=== PATIENT | female | born 1955 | race Caucasian/White ===

== ENCOUNTER 2021-09-30 11:54 | Inpatient (IN) ==
[2021-09-30 12:58] LABS: Hematocrit 42.1 % (35.3-44.9); Hemoglobin 13.9 g/dL (11.5-15.4); Mean Corpuscular Volume 87.7 fL (83.0-100.0); Mean Platelet Volume 9.6 fL (9.4-12.4); Platelet Count 406 K/mcL (140-400); Red Cell Distribution Width 13.3 % (11.5-14.5); White Blood Count 8.8 K/mcL (4.3-11.1)
[2021-09-30 12:59] LABS: Bilirubin,Urine Negative (Negative); Blood,Urine Moderate (Negative); Clarity,Urine Ex.Turbid (Clear); Color,Urine Orange (Yellow); Glucose,Urine (UA) Normal (Normal); Ketones,Urine Negative (Negative); Leukocyte Esterase,Urine Large (Negative); Nitrite,Urine Negative (Negative); PH,Urine 7.5 pH Units (5.0-8.0); Protein,Urine >=300 mg/dL (Neg-Trace); RBC,Urine TNTC per hpf (0-3); Specific Gravity,Urine 1.012 (1.010-1.025); Squamous Epithelial Cell,Urine Moderate per hpf (None-Few); Urobilinogen,Urine Normal (Normal); WBC,Urine TNTC per hpf (0-3)
[2021-09-30 13:15] LABS: Albumin 3.8 g/dL (3.5-5.7); Albumin/Globulin Ratio 0.7 (1.1-2.2); Bilirubin,Direct 0.1 mg/dL (0.0-0.2); Bilirubin,Indirect 0.3 mg/dL (0.0-1.0); Bilirubin,Total 0.4 mg/dL (0.3-1.0); Calcium 9.4 mg/dL (8.6-10.3); Globulin 5.2 g/dL (2.4-3.5); Potassium 5.3 mEq/L (3.5-5.1); Troponin I 0.04 ng/mL (< 0.04)
[2021-09-30] MEDS ORDERED: 0.9 % Sodium Chloride 1,000 ML IVC ONE (13:16)
[2021-09-30 13:17] LABS: Eosinophils # 0.1 K/mcL (0.0-0.6); Lymphocytes # 1.9 K/mcL (0.6-4.6); Monocytes # 0.2 K/mcL (0.0-1.3); Neutrophils # 6.7 K/mcL (1.6-8.9)
[2021-09-30 13:18] LABS: Reactive Lymphocytes Present (Not Present)
[2021-09-30] MEDS ORDERED: Ringers Solution, Lactated 1,000 ML IVC ONE (13:19)
[2021-09-30] MEDS ORDERED: cefTRIAXone 1,000 MG in Water for inj. (sterile) 10 ML IVP ONE (13:24)
[2021-09-30 13:26] LABS: Influenza A PCR Negative (Negative); Influenza B PCR Negative (Negative); Resp. Syncytial Virus PCR Negative (Negative)
[2021-09-30 13:46] LABS: SARS-CoV-2 by PCR (In House) Positive (Negative)
[2021-09-30] MEDS ORDERED: *HR* FentaNYL (PF) 100 MCG/2 ML VIAL IVP ONE (14:19)
[2021-09-30] MEDS ORDERED: D5 IVC SCH (14:45)
[2021-09-30] MEDS ORDERED: NACL IVC SCH (14:45)
[2021-09-30] MEDS ORDERED: SODIUM BICARBONATE IVC SCH (14:45)
[2021-09-30] MEDS ORDERED: Ondansetron 4 MG/2 ML VIAL IVP PRN ×3 (16:30→19:32)
[2021-09-30] MEDS ORDERED: *HR* HYDROmorphone PF 0.5 MG/0.5 ML SYRINGE IVP PRN (16:30)
[2021-09-30 16:45] LABS: Potassium 5.3 mEq/L (3.5-5.1)
[2021-09-30] MEDS ORDERED: *HR* Propofol 200 MG/20 ML VIAL IVP ONE (17:09)
[2021-09-30] MEDS ORDERED: Ondansetron 4 MG/2 ML VIAL ONE (17:11)
[2021-09-30] MEDS ORDERED: Lidocaine -MPF 2% 5 ML VIAL ONE (17:11)
[2021-09-30] MEDS ORDERED: *HR* FentaNYL (PF) 100 MCG/2 ML VIAL ONE (17:11)
[2021-09-30] MEDS ORDERED: Isovue-300 50ML VIAL ONE (17:23)
[2021-09-30] MEDS ORDERED: Acetaminophen IV 1,000 MG/100 ML BAG IVPB ONE (17:32)
[2021-09-30] MEDS ORDERED: *HR* Rocuronium Bromide 50 MG/5 ML VIAL ONE (17:50)
[2021-09-30] MEDS ORDERED: Piperacillin/Tazobactam 3.375 GM in 0.9 % Sodium Chloride Mini Bag 100 ML IVPB SCH (18:00)
[2021-09-30] MEDS ORDERED: Sugammadex Sodium 200 MG/2 ML VIAL IV ONE (18:25)
[2021-09-30] MEDS: D5 IVC SCH (20:11)
[2021-09-30] MEDS: NACL IVC SCH (20:11)
[2021-09-30] MEDS: SODIUM BICARBONATE IVC SCH (20:11)
[2021-09-30] MEDS ORDERED: *HR* Heparin 5,000 UNIT/ML VIAL SQ SCH (22:00)
[2021-09-30] MEDS: Piperacillin/Tazobactam 3.375 GM in 0.9 % Sodium Chloride Mini Bag 100 ML IVPB SCH (22:51)
[2021-09-30] MEDS: *HR* Heparin 5,000 UNIT/ML VIAL SQ SCH (22:58)
[2021-10-01] MEDS: Piperacillin/Tazobactam 3.375 GM in 0.9 % Sodium Chloride Mini Bag 100 ML IVPB SCH ×2 (05:30→17:30)
[2021-10-01] MEDS: *HR* Heparin 5,000 UNIT/ML VIAL SQ SCH ×3 (05:31→20:51)
[2021-10-01] MEDS ORDERED: Piperacillin/Tazobactam 3.375 GM in 0.9 % Sodium Chloride Mini Bag 100 ML IVPB SCH (06:00)
[2021-10-01] MEDS: NACL IVC SCH (07:49)
[2021-10-01] MEDS: SODIUM BICARBONATE IVC SCH (07:49)
[2021-10-01] MEDS: D5 IVC SCH (07:49)
[2021-10-01 10:53] LABS: Hematocrit 33.2 % (35.3-44.9); Mean Corpuscular HGB Conc 31.3 g/dL (31.6-35.5); Mean Corpuscular Hemoglobin 28.9 pg (28.0-33.3); Mean Corpuscular Volume 92.2 fL (83.0-100.0); Mean Platelet Volume 9.8 fL (9.4-12.4); Platelet Count 307 K/mcL (140-400); Red Cell Distribution Width 13.4 % (11.5-14.5)
[2021-10-01 11:09] LABS: Hemoglobin 10.4 g/dL (11.5-15.4); White Blood Count 3.7 K/mcL (4.3-11.1)
[2021-10-01 11:15] LABS: Uric Acid 7.4 mg/dL (2.3-7.6)
[2021-10-01 11:17] LABS: Calcium 7.6 mg/dL (8.6-10.3); Phosphorous 4.9 mg/dL (2.7-4.5); Potassium 4.8 mEq/L (3.5-5.1)
[2021-10-01 11:39] LABS: Vitamin D 25 Hydroxy 16 ng/mL (30-80)
[2021-10-01] MEDS: SODIUM ZIRCONIUM CYCLOSILICATE 5 GM POWD.PACK PO SCH (11:50)
[2021-10-01 11:53] LABS: Hepatitis B Surface Antigen Nonreactive (Nonreactive)
[2021-10-01 12:22] LABS: Hepatitis C Virus Antibody Nonreactive (Nonreactive)
[2021-10-01 12:23] LABS: Hepatitis B Core IgM Nonreactive (Nonreactive)
[2021-10-01 12:24] LABS: Hepatitis A Antibody IgM Nonreactive (Nonreactive)
[2021-10-01] MEDS: Sodium Bicarbonate 75 MEQ in 0.45 % Sodium Chloride 1,000 ML IVC SCH (14:27)
[2021-10-01 15:10] LABS: Lymphocytes # 0.8 K/mcL (0.6-4.6); Monocytes # 0.3 K/mcL (0.0-1.3); Neutrophils # 2.6 K/mcL (1.6-8.9); Platelet Estimate Normal (Normal); Poikilocytosis 1+ (Not Present); Reactive Lymphocytes Present (Not Present)
[2021-10-01 16:25] LABS: Sodium, Urine 65.5 mEq/L
[2021-10-01 16:27] LABS: Protein/Creatinine Ratio,Urine 4.95 mg/mg (0.00-0.20)
[2021-10-01] MEDS ORDERED: Ergocalciferol (VIT D2) 50,000 UNIT (1.25MG) CAP PO SCH (18:00)
[2021-10-02 01:34] LABS: Basophils % 0.3 %; Eosinophils % 0.1 %; Hematocrit 32.4 % (35.3-44.9); Hemoglobin 10.4 g/dL (11.5-15.4); Immature Granulocytes % 1.1 % (0-4); Lymphocytes # 1.5 K/mcL (0.6-4.6); Lymphocytes % 21.9 %; Mean Corpuscular HGB Conc 32.1 g/dL (31.6-35.5); Mean Corpuscular Hemoglobin 28.8 pg (28.0-33.3); Mean Corpuscular Volume 89.8 fL (83.0-100.0); Mean Platelet Volume 9.4 fL (9.4-12.4); Monocytes # 0.5 K/mcL (0.0-1.3); Monocytes % 7.1 %; Neutrophils # 4.9 K/mcL (1.6-8.9); Platelet Count 315 K/mcL (140-400); Red Blood Count 3.61 M/mcL (3.82-4.97); Red Cell Distribution Width 13.4 % (11.5-14.5); Segmented Neutrophils % 69.5 %
[2021-10-02 01:52] LABS: Calcium 7.6 mg/dL (8.6-10.3); Potassium 3.9 mEq/L (3.5-5.1)
[2021-10-02 02:54] LABS: Platelet Estimate Normal (Normal); Reactive Lymphocytes Present (Not Present)
[2021-10-02] MEDS: *HR* Heparin 5,000 UNIT/ML VIAL SQ SCH ×3 (05:12→20:52)
[2021-10-02] MEDS: Piperacillin/Tazobactam 3.375 GM in 0.9 % Sodium Chloride Mini Bag 100 ML IVPB SCH ×2 (05:12→17:11)
[2021-10-02] MEDS: Sodium Bicarbonate 75 MEQ in 0.45 % Sodium Chloride 1,000 ML IVC SCH (05:59)
[2021-10-02] MEDS: SODIUM ZIRCONIUM CYCLOSILICATE 5 GM POWD.PACK PO SCH (09:07)
[2021-10-02] MEDS: Cholecalciferol (D-3) 1,000 UNIT (25MCG) TABLET PO SCH (09:09)
[2021-10-02] MEDS ORDERED: Sodium Bicarbonate 50 MEQ in 0.45 % Sodium Chloride 1,000 ML IVC SCH (12:15)
[2021-10-03] MEDS: *HR* Heparin 5,000 UNIT/ML VIAL SQ SCH ×3 (06:18→22:02)
[2021-10-03] MEDS: Piperacillin/Tazobactam 3.375 GM in 0.9 % Sodium Chloride Mini Bag 100 ML IVPB SCH ×2 (06:18→16:47)
[2021-10-03] MEDS: Aspirin 81 MG TAB.CHEW PO SCH (08:02)
[2021-10-03] MEDS: Cholecalciferol (D-3) 1,000 UNIT (25MCG) TABLET PO SCH (08:02)
[2021-10-03 09:23] LABS: Basophils % 0.3 %; Eosinophils # 0.1 K/mcL (0.0-0.6); Hemoglobin 11.4 g/dL (11.5-15.4); Immature Granulocytes % 1.5 % (0-4); Lymphocytes # 2.4 K/mcL (0.6-4.6); Lymphocytes % 34.9 %; Mean Corpuscular HGB Conc 32.6 g/dL (31.6-35.5); Mean Corpuscular Hemoglobin 29.9 pg (28.0-33.3); Mean Corpuscular Volume 91.9 fL (83.0-100.0); Mean Platelet Volume 9.5 fL (9.4-12.4); Monocytes # 0.5 K/mcL (0.0-1.3); Monocytes % 6.5 %; Platelet Count 359 K/mcL (140-400); Red Blood Count 3.81 M/mcL (3.82-4.97); Red Cell Distribution Width 13.1 % (11.5-14.5); Segmented Neutrophils % 55.8 %; White Blood Count 6.9 K/mcL (4.3-11.1)
[2021-10-03 09:43] LABS: Neutrophils # 3.9 K/mcL (1.6-8.9)
[2021-10-03 09:49] LABS: Calcium 7.9 mg/dL (8.6-10.3); Potassium 3.4 mEq/L (3.5-5.1)
[2021-10-03 10:04] LABS: Platelet Estimate Normal (Normal); Reactive Lymphocytes Present (Not Present)
[2021-10-03] MEDS ORDERED: 0.9 % Sodium Chloride 1,000 ML IVC SCH (15:00)
[2021-10-04 01:29] LABS: Basophils % 0.3 %; Eosinophils # 0.1 K/mcL (0.0-0.6); Eosinophils % 1.5 %; Hematocrit 33.3 % (35.3-44.9); Hemoglobin 10.8 g/dL (11.5-15.4); Immature Granulocytes % 2.1 % (0-4); Lymphocytes % 37.1 %; Mean Corpuscular HGB Conc 32.4 g/dL (31.6-35.5); Mean Corpuscular Hemoglobin 29.7 pg (28.0-33.3); Mean Corpuscular Volume 91.5 fL (83.0-100.0); Mean Platelet Volume 9.3 fL (9.4-12.4); Monocytes # 0.5 K/mcL (0.0-1.3); Neutrophils # 3.7 K/mcL (1.6-8.9); Platelet Count 389 K/mcL (140-400); Red Blood Count 3.64 M/mcL (3.82-4.97); Red Cell Distribution Width 13.1 % (11.5-14.5); White Blood Count 7.1 K/mcL (4.3-11.1)
[2021-10-04 01:38] LABS: Lymphocytes # 2.6 K/mcL (0.6-4.6)
[2021-10-04 01:46] LABS: Calcium 7.7 mg/dL (8.6-10.3); Potassium 3.1 mEq/L (3.5-5.1)
[2021-10-04 03:12] LABS: Platelet Estimate Normal (Normal); Reactive Lymphocytes Present (Not Present)
[2021-10-04] MEDS: Piperacillin/Tazobactam 3.375 GM in 0.9 % Sodium Chloride Mini Bag 100 ML IVPB SCH (06:12)
[2021-10-04] MEDS: *HR* Heparin 5,000 UNIT/ML VIAL SQ SCH (06:13)
[2021-10-04] MEDS: Cholecalciferol (D-3) 1,000 UNIT (25MCG) TABLET PO SCH (07:50)
[2021-10-04] MEDS: Aspirin 81 MG TAB.CHEW PO SCH (07:50)
[2021-10-04 07:59] VITALS: TEMP 97.9; O2SAT 90
[2021-10-04 11:33] VITALS: BP 123/70; PULSE 54
== END 2021-10-04 12:52 | disposition home health service (06) | DRG 853 ==
LOC: SUATTDRO → EMEROOARM 11:54 → 2NNU 17:46 → SUATTDRO 18:13 → 2NNU 18:13 → 3ANU 10-03 16:25
PROVIDERS: ADMIT Student in an Organized Health Care Education/Training Program; ATTEND Internal Medicine